=== PATIENT | male | born 1995 | race Caucasian/White ===

== ENCOUNTER 2017-03-24 05:27 | Emergency (ER) | payer SELFPAY ==
[2017-03-24 05:57] LABS: Urine Bilirubin Negative (NEGATIVE); Urine Ketone Negative (NEGATIVE); Urine Nitrite Negative (NEGATIVE); Urine Protein 15 mg/dL (NEGATIVE); Urine Specific Gravity 1.025 SP.GR. (1.005-1.030); Urine Urobilinogen Normal (NORMAL)
[2017-03-24 06:01] LABS: Urine Blood 5 /ul (NEGATIVE)
[2017-03-24 06:02] LABS: Urine Appearance Clear; Urine Bacteria TRACE; Urine Color Pale Yellow; Urine RBC 0-5 /hpf (0-5); Urine WBC None Seen /hpf (0-5)
[2017-03-24 06:06] LABS: Cocaine Ur Negative (NEGATIVE); Urine Barbiturate Negative (NEGATIVE); Urine Benzodiazepines Negative (NEGATIVE); Urine Opiates Negative (NEGATIVE); Urine PCP Negative (NEGATIVE)
[2017-03-24 06:07] LABS: Urine THC Positive (NEGATIVE)
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
[2017-03-24 06:21] LABS: Hematocrit 47.8 % (42.0-52.0); Hemoglobin 16.6 gm/dL (13.5-18.0); Mean Corpuscular Hemoglobin 29.2 pg (27-31); Mean Corpuscular Hgb Conc 34.7 g/dl (32-36); Mean Platelet Volume 9.6 fl (6.0-9.5); Neutrophil # 12.2 K/mm3 (1.3-6.0); Neutrophil % 78.7 % (42-75.0); Platelet Count 321 K/mm3 (150-450); Red Blood Count 5.69 M/mm3 (4.7-6.0); Red Cell Distribution Width 13.2 % (11.5-14.0); White Blood Count 15.5 K/mm3 (4.0-10.5)
[2017-03-24 06:38] LABS: Albumin * 3.7 gm/dl (3.4-5.0); Anion Gap 13.6 mmol/L (6.8-13.8); BUN/Creatinine Ratio 10.3 (9.0-21.6); Bilirubin, Total 0.4 mg/dL (0.0-1.1); CRP 0.3 mg/dL (0.0-0.9); Ca. Corrected For Albumin 9.1 mg/dL (8.4-10.2); Calcium * 9.2 mg/dL (7.9-10.9); Carbon Dioxide 26.3 mmol/L (24-32.6); Potassium 3.9 mmol/L (3.4-4.6); Total Protein 7.3 gm/dL (6.2-8.2)
[2017-03-24 06:46] VITALS: BP 136/87
== END 2017-03-24 07:25 | disposition home or self-care (01) ==
LOC: ER 05:27
DX: K04.7 Periapical abscess without sinus (principal); M79.605 Pain in left leg; M79.604 Pain in right leg; Z72.0 Tobacco use